=== PATIENT | female | born 1960 | race Caucasian/White ===

== ENCOUNTER 2016-12-25 11:29 | Emergency (ER) | payer MEDICAID ==
--- NOTE | 2016-12-25 12:22 | EDM.PDOC ---
ED HPI GENERAL MEDICAL PROBLEM - General Chief Complaint: Skin Complaint Stated Complaint: INSECT BITE RIGHT LEG SIDE OF KNEE Time Seen by Provider: 12/25/16 12:05 Source of Information: Reports: Patient History Limitations: Reports: No Limitations - History of Present Illness INITIAL COMMENTS - FREE TEXT/NARRATIVE: 56-year-old female was bitten by something on the inner aspect of the right leg near the knee 3 days ago. Over the past several days it has become very reddened , warm, with a pustular center. No fever or chills, no red streaks expanding from the lesion itself. Associated Symptoms: Denies: Fever/Chills, Headaches, Loss of Appetite, Malaise , Shortness of Breath Right Leg Pain Score (Numeric/FACES): 7 - Related Data Allergies Allergy/AdvReac Type Severity Reaction Status Date / Time aspirin Allergy Nausea and Verified 12/25/16 11:45 Vomiting hydromorphone [From Dilaudid] Allergy Respiratory Verified 12/25/16 11:45 Distress Penicillins Allergy Cannot Verified 12/25/16 11:45 Remember Home Meds: Home Meds Cholecalciferol (Vitamin D3) [Vitamin D3] 2,000 unit PO DAILY 12/25/16 [History] Docusate Sodium [Colace] 100 mg PO DAILY 12/25/16 [History] Gabapentin [Neurontin] 300 mg PO DAILY 12/25/16 [History] Levothyroxine 75 mcg PO ACBREAKFAST 12/25/16 [History] Omeprazole 20 mg PO DAILY 12/25/16 [History] buPROPion [Wellbutrin XL] 300 mg PO DAILY 12/25/16 [History] Past Medical History HEENT History: Reports: Hard of Hearing, Impaired Vision Gastrointestinal History: Reports: Diverticulosis, GERD Genitourinary History: Reports: Acute Renal Failure, Urinary Incontinence [employer] History: Reports: Polycystic Ovaries Musculoskeletal History: Reports: Arthritis, Fracture, Osteoarthritis, RA Neurological History: Reports: Neuropathy, Peripheral Psychiatric History: Reports: Anxiety, Depression Endocrine/Metabolic History: Reports: Hypothyroidism Hematologic History: Reports: B12 Deficiency Oncologic (Cancer) History: Reports: Uterine - Past Surgical History HEENT Surgical History: Reports: Other (See Below) Other HEENT Surgeries/Procedures: nose reconstruction GI Surgical History: Reports: Cholecystectomy Social & Family History - Tobacco Use Smoking Status *Q: Current Every Day Smoker Years of Tobacco use: 40 Packs/Tins Daily: 0.5 - Caffeine Use Caffeine Use: Reports: Coffee, Soda - Recreational Drug Use Recreational Drug Use: No ED ROS GENERAL - Review of Systems Review Of Systems: See Below Constitutional: Denies: Fever, Chills, Malaise Respiratory: Denies: Shortness of Breath Cardiovascular: Denies: Chest Pain GI/Abdominal: Denies: Nausea, Vomiting ED EXAM, SKIN/RASH Exam: See Below Exam Limited By: No Limitations General Appearance: Alert, No Apparent Distress Respiratory/Chest: No Respiratory Distress Extremities: Other (Exam is otherwise limited to a local area on the right leg. Just medial and below the knee the patient has a 4 cm round erythematous tender lesion with a exudative small pustular center.) Course - Vital Signs Last Recorded V/S: Last Vital Signs Temp 96.6 F 12/25/16 11:49 Pulse 88 12/25/16 11:49 Resp 16 12/25/16 11:49 BP 153/109 H 12/25/16 11:49 Pulse Ox 94 L 12/25/16 11:49 - Re-Assessments/Exams Free Text/Narrative Re-Assessment/Exam: 12/25/16 12:21 Explained to the patient that this is likely just a toxic reaction to the bite, however she is "living in her car" and can't afford to develop a worsening infection. She was put on Bactrim DS twice a day for the next 5 days and will return if worsening despite treatment. I encouraged her to keep the area clean. Departure - Departure Time of Disposition: 12:36 Disposition: Home, Self-Care 01 Condition: Good Clinical Impression: Cellulitis and abscess of right leg - Discharge Information Instructions: Insect Bite, [id number] Referrals: PCP,None [Primary Care Provider] - Forms: ED Department Discharge Care Plan Goals: Keep the area clean while healing. Antibiotic twice a day for 5 days, and return if worsening despite treatment.
== END 2016-12-25 12:36 | disposition home or self-care (01) ==
LOC: JP.ED 11:29
DX: L03.115 Cellulitis of right lower limb (principal); L02.415 Cutaneous abscess of right lower limb; K21.9 Gastro-esophageal reflux disease without esophagitis; M19.90 Unspecified osteoarthritis, unspecified site; F17.210 Nicotine dependence, cigarettes, uncomplicated; Z79.899 Other long term (current) drug therapy; Z88.6 Allergy status to analgesic agent; Z88.0 Allergy status to penicillin; Z88.8 Allergy status to other drugs, medicaments and biological substances
CPT/HCPCS: 99283